=== PATIENT | male | born 1980 | race Two or more races ===

== ENCOUNTER 2017-03-09 21:41 | Inpatient (IN) | payer BC ==
[2017-03-09 22:03] VITALS: BMI 28.7
[2017-03-09] MEDS ORDERED: ONDANSETRON *ODT* 4 MG TABLET SL ONE (22:14)
[2017-03-09] MEDS ORDERED: HYDROmorphone HCL CARPU-JECT 2 MG/1 ML DISP.SYRIN ONE (22:14)
[2017-03-09] MEDS ORDERED: HYDROmorphone HCL CARPU-JECT 2 MG/1 ML DISP.SYRIN IM ONE (22:14)
--- NOTE | 2017-03-09 22:18 | PDOC ---
History of Present Illness <Francisco Harmon - Last Filed: 03/10/17 02:56> - General History Source: Patient Exam Limitations: No Limitations - History of Present Illness Initial Comments: 03/09/17 22:25 The patient is a 37 year old male with significant past medical history of kidney stones who presents to the ED for sudden onset of increasing right flank pain and right groin pain 2 hours prior to arrival. Patient reports he was in his usual state of health when he was sitting down and suddenly felt a sharp pain in his right flank and right groin region. He reports associated nausea and vomiting, but no diarrhea. States having a year history of intermittent right groin pain that normally goes away on its own. However, his pain is now much more intense. States his pain is consistent with his previous kidney stones in the past. Denies dysuria, hematuria, urgency, and frequency. The patient denies fever, chills, cough, SOB, chest pain, and palpitations. Allergies: NKDA Social History: No alcohol, tobacco, or drug use reported. Past Surgical History: None reported PCP: None reported <Franci Flores - Last Filed: 03/10/17 05:00> - General Chief Complaint: Pain Stated Complaint: ABD PAIN Time Seen by Provider: 03/09/17 22:07 Past History - Past Medical History Kidney Stones: Yes - Psycho/Social/Smoking Cessation Hx Suicidal Ideation: No Smoking History: Never smoked <Francisco Harmon - Last Filed: 03/10/17 02:56> <Franci Flores - Last Filed: 03/10/17 05:00> - Past Medical History Allergies/Adverse Reactions: Allergies Allergy/AdvReac Type Severity Reaction Status Date / Time No Known Allergies Allergy Verified 03/09/17 22:03 Home Medications: Ambulatory Orders Ondansetron [Zofran *Odt*] 8 mg SL TID #30 od.tablet 03/10/17 Oxycodone HCl/Acetaminophen [Percocet 5-325 mg Tablet] 1 - 2 tab PO Q6H #20 tab MDD 6 03/10/17 Review of Systems - Review of Systems Able to Perform ROS?: Yes Comments:: 03/09/17 22:25 CONSTITUTIONAL: Absent: fever, no chills, no fatigue EYES: Absent: visual changes ENT: Absent: ear pain, no sore throat CARDIOVASCULAR: Absent: chest pain, no palpitations RESPIRATORY: Absent: cough, no SOB GI: +right groin pain, nausea, vomiting Absent: no constipation, no diarrhea GENITOURINARY: +right flank pain Absent: dysuria, no frequency, no hematuria MUSCULOSKELETAL: Absent: back pain, no arthralgia, no myalgia SKIN: Absent: rash NEURO: Absent: headache <MarkFranci - Last Filed: 03/10/17 05:00> *Physical Exam - Vital Signs Last Vital Signs Temp Pulse Resp BP Pulse Ox 97.9 F 70 18 140/85 99 03/09/17 22:01 03/09/17 22:01 03/09/17 22:01 03/09/17 22:01 03/09/17 22:01 <Francisco Harmon - Last Filed: 03/10/17 02:56> - Vital Signs Last Vital Signs Temp Pulse Resp BP Pulse Ox 97.9 F 70 18 140/85 99 03/09/17 22:01 03/09/17 22:01 03/09/17 22:01 03/09/17 22:01 03/09/17 22:01 - Physical Exam Comments: 03/09/17 22:26 GENERAL: Well-appearing, well-nourished. No apparent distress. HEENT: Normocephalic, atraumatic. PERRL, EOM intact. CARDIOVASCULAR: Normal S1, S2. Regular rate and rhythm. PULMONARY: Clear to auscultation bilaterally. ABDOMINAL: Soft. Tender in the right lower quadrant region, but not right upper quadrant. Unable to sit still secondary to the pain. Non-distended. No rebound or guarding. No murphys sign. No organomegaly. Normoactive bowel sounds. MUSCULOSKELETAL No CVA tenderness. EXTREMITIES: Normal ROM in all four extremities. No gross deformities. SKIN: Warm, dry. No rash NEUROLOGICAL: No focal neurological deficits. <MarkFranci - Last Filed: 03/10/17 05:00> Heart Score/ECG Review - ECG Impressions Comment:: 03/10/17 05:00 NSR @68bpm Normal ECG <Franci Flores - Last Filed: 03/10/17 05:00> ED Treatment Course - LABORATORY CBC & Chemistry Diagram: 03/09/17 22:30 03/09/17 22:30 - RADIOLOGY Radiology Studies Ordered: Category Date Time Status ABDOMEN & PELVIS CT W/O CONTR [CT] Stat CT Scan 03/09/17 22:15 Ordered <Francisco Harmon - Last Filed: 03/10/17 02:56> - LABORATORY CBC & Chemistry Diagram: 03/09/17 22:30 03/09/17 22:30 - RADIOLOGY Radiograph Interpretation: 03/10/17 00:13 CT/ABDOMEN PELVIS CT W/O CONTR Radiologist's Impression: An approximately 1.1 x 0.4 cm calculus is seen within the right renal pelvis adjacent to the ureteropelvic junction with resultant moderate hydronephrosis. There is mild right perirenal soft tissue stranding secondary to acute obstruction. 0.4 cm upper pole and 0.1 cm lower pole nonobstructing right renal calculi are visualized. No other definite urinary tract calculus is noted. Bilateral inguinal hernias are seen containing fat only. The liver, spleen, pancreas, gallbladder, adrenal glands and left kidney demonstrate no discrete noncontrast pathology. There is no aortic aneurysm. No free intraperitoneal fluid is noted. There is no obvious lymphadenopathy. The appendix appears unremarkable. IMPRESSION: A 1.1 x 0.4 cm calculus is identified within the right renal pelvis adjacent to the ureteropelvic junction with resultant moderate hydronephrosis. Small nonobstructing right renal calculi. Bilateral inguinal hernias containing fat only. <Franci Flores - Last Filed: 03/10/17 05:00> Medical Decision Making - Medical Decision Making 03/10/17 01:[address] Lavon Avila (via answering service) and patient's case was discussed <Franci Flores - Last Filed: 03/10/17 05:00> *DC/Admit/Observation/Transfer - Discharge Dispostion Admit: Yes - Attestations Physician Attestion: 03/09/17 22:17 I, Dr. Francisco Harmon, attest that this document has been prepared under my direction and personally reviewed by me in its entirety. I further attest, that it accurately reflects all work, treatment, procedures and medical decision -making performed by me. <Francisco Harmon - Last Filed: 03/10/17 02:56> - Attestations Scribe Attestion: 03/09/17 22:26 Documentation prepared by Franci Flores, acting as medical language specialist for Francisco Harmon MD/. <Franci Flores - Last Filed: 03/10/17 05:00> Diagnosis at time of Disposition: Kidney stone on right side, Hydroureter on right - Discharge Dispostion Condition at time of disposition: Improved - Prescriptions Prescriptions: Oxycodone HCl/Acetaminophen [Percocet 5-325 mg Tablet] 1 - 2 tab PO Q6H #20 tab MDD 6 Ondansetron [Zofran *Odt*] 8 mg SL TID #30 od.tablet
[2017-03-09 22:41] LABS: BASOPHIL 0.5 % (0-2.0); EOSINOPHIL 0.4 % (0-4.5); MCH 27.4 pg (25.7-33.7); MCHC 33.7 g/dl (32.0-35.9); MEAN CELL VOLUME 81.5 fl (80-96); MEAN PLT VOLUME 7.9 fl (7.5-11.1); NEUTROPHILS 79.3 % (42.8-82.8); PLATELET COUNT 239 K/MM3 (134-434); RDW 13.3 % (11.9-15.9); WHITE BLOOD COUNT 14.2 K/mm3 (4.0-10.0)
[2017-03-09 23:02] LABS: ALBUMIN 4.1 g/dl (3.4-5.0); ALK PHOS 60 U/L (45-117); ANION GAP 5 (8-16); BILIRUBIN,TOTAL 0.4 mg/dL (0.2-1.0); CALCIUM 8.8 mg/dL (8.5-10.1); CO2 29 mmol/L (21-32); GLUCOSE,RANDOM 103 mg/dL (74-106); SGOT/AST 17 U/L (15-37); SGPT/ALT 25 U/L (12-78); TOT PROT 6.9 g/dl (6.4-8.2)
[2017-03-09] MEDS ORDERED: SODIUM CHLORIDE 0.9% 1000 ML INFUS.BAG IV ONE (23:12)
[2017-03-09 23:15] LABS: INR 1.07 (0.82-1.09); PROTHROMBIN TIME (PATIENT) 11.8 SEC (9.98-11.88)
[2017-03-10] MEDS ORDERED: SODIUM CHLORIDE 1,000 ML IV STA (01:07)
--- NOTE | 2017-03-10 01:35 | PN ---
Teaching Attending Note Name of Resident: Liya Liu ATTENDING PHYSICIAN STATEMENT I saw and evaluated the patient. I reviewed the resident's note and discussed the case with the resident. I agree with the resident's findings and plan as documented. SUBJECTIVE: 37 yo with pmhx of nephrolithiasis who presents with abdominal pain that started today, several hours prior to arrival. Abdominal Pain is more on his right side of his abdomen and radiating to his groin. Also notes associated nausea and vomiting. OBJECTIVE: Physical: VS: Vital Signs Period Temp Pulse Resp BP Sys/Russo Pulse Ox Last 24 Hr 97.9 F 70 18 140/85 99 GEN: NAD, Resting in bed HEENT: NCAT, PERRL CARD: RRR S1, S2 RESP: CTAB ABD: BSX4, Tenderness to palpation in RLQ EXT: - C/C/E CBCD WBC 14.2 K/mm3 (4.0-10.0) H 03/09/17 22:30 RBC 4.74 M/mm3 (4.00-5.60) 03/09/17 22:30 Hgb 13.0 GM/dL (11.7-16.9) 03/09/17 22:30 Hct 38.6 % (35.4-49) 03/09/17 22:30 MCV 81.5 fl (80-96) 03/09/17 22:30 MCHC 33.7 g/dl (32.0-35.9) 03/09/17 22:30 RDW 13.3 % (11.9-15.9) 03/09/17 22:30 Plt Count 239 K/MM3 (134-434) 03/09/17 22:30 MPV 7.9 fl (7.5-11.1) 03/09/17 22:30 CMP Sodium 137 mmol/L (136-145) 03/09/17 22:30 Potassium 3.9 mmol/L (3.5-5.1) 03/09/17 22:30 Chloride 103 mmol/L (98-107) 03/09/17 22:30 Carbon Dioxide 29 mmol/L (21-32) 03/09/17 22:30 Anion Gap 5 (8-16) L 03/09/17 22:30 BUN 17 mg/dL (7-18) 03/09/17 22:30 Creatinine 1.0 mg/dL (0.7-1.3) 03/09/17 22:30 Creat Clearance w eGFR > 60 (>60) 03/09/17 22:30 Random Glucose 103 mg/dL (74-106) 03/09/17 22:30 Calcium 8.8 mg/dL (8.5-10.1) 03/09/17 22:30 Total Bilirubin 0.4 mg/dL (0.2-1.0) 03/09/17 22:30 AST 17 U/L (15-37) 03/09/17 22:30 ALT 25 U/L (12-78) 03/09/17 22:30 Alkaline Phosphatase 60 U/L (45-117) 03/09/17: Total Protein 6.9 g/dl (6.4-8.2) 03/09/17 22: Albumin 4.1 g/dl (3.4-5.0) 03/09/17 22:30 CT ABDOMEN/PELVIS: CT/ABDOMEN PELVIS CT W/O CONTR Radiologist's Impression: An approximately 1.1 x 0.4 cm calculus is seen within the right renal pelvis adjacent to the ureteropelvic junction with resultant moderate hydronephrosis. There is mild right perirenal soft tissue stranding secondary to acute obstruction. 0.4 cm upper pole and 0.1 cm lower pole nonobstructing right renal calculi are visualized. No other definite urinary tract calculus is noted. Bilateral inguinal hernias are seen containing fat only. The liver, spleen, pancreas, gallbladder, adrenal glands and left kidney demonstrate no discrete noncontrast pathology. There is no aortic aneurysm. No free intraperitoneal fluid is noted. There is no obvious lymphadenopathy. The appendix appears unremarkable. IMPRESSION: A 1.1 x 0.4 cm calculus is identified within the right renal pelvis adjacent to the ureteropelvic junction with resultant moderate hydronephrosis. Small nonobstructing right renal calculi. Bilateral inguinal hernias containing fat only. ASSESSMENT AND PLAN: 37 With hx of Nephrolithiasis who presents with abdominal pain found to have nephrolithiasis and R. moderate hydronephrosis 1.) Nephrolithiasis with mod. R hydronephrosis - Flomax - Pain control - IVF - Urology consult - NPO - Type and screen/Coags - Urine strainer for smaller stones 2.) Dvt PPx - Low risk- SCD Place in med- Sx
--- NOTE | 2017-03-10 01:38 | HP ---
HISTORY OF PRESENT ILLNESS: Patient is a 37 year old male with a PMHx of nephrolithiasis who presents today with a sudden onset of right mid-abdominal pain and flank pain radiating to the right groin that started several hours prior to hospital arrival described as sharp in nature. Pain is associated with nausea, vomiting, subjective fevers, urgency. Patient otherwise denies chest pain, palpitations, shortness of breath , headaches. PHYSICAL EXAMINATION Vital Signs - 24 hr 03/09/17 22:01 Temperature 97.9 F Pulse Rate 70 Respiratory 18 Rate Blood Pressure 140/85 O2 Sat by Pulse 99 Oximetry (%) GENERAL: Awake, alert, and fully oriented, in no acute distress. EYES: Sclera anicteric, conjunctiva clear. No lid lag. EARS, NOSE, THROAT: Ears normal, nares patent, oropharynx clear without exudates. Moist mucous membranes. LUNGS: Breath sounds equal, clear to auscultation bilaterally. No wheezes, and no crackles. No accessory muscle use. HEART: Regular rate and rhythm, normal S1 and S2 without murmur, rub or gallop. ABDOMEN: Soft, tenderness upon palpation of right mid and lower abdomen MUSCULOSKELETAL: (+) Right CVA tenderness. LOWER EXTREMITIES: No peripheral edema. Laboratory Results - last 24 hr 03/09/17 03/09/17 03/09/17 22:30 22:30 22:30 WBC 14.2 H RBC 4.74 Hgb 13.0 Hct 38.6 MCV 81.5 MCH 27.4 MCHC 33.7 RDW 13.3 Plt Count 239 MPV 7.9 Neutrophils % 79.3 Lymphocytes % 15.4 Monocytes % 4.4 Eosinophils % 0.4 Basophils % 0.5 INR 1.07 Sodium 137 Potassium 3.9 Chloride 103 Carbon Dioxide 29 Anion Gap 5 L BUN 17 Creatinine 1.0 Creat Clearance w eGFR > 60 Random Glucose 103 Calcium 8.8 Total Bilirubin 0.4 AST 17 ALT 25 Alkaline Phosphatase 60 Total Protein 6.[address] Abdo/Pelvis (03/09/17): An approximately 1.1 x 0.4 cm calculus is seen within the right renal pelvis adjacent to the ureteropelvic junction with resultant moderate hydronephrosis. There is mild right perirenal soft tissue stranding secondary to acute obstruction. 0.4 cm upper pole and 0.1 cm lower pole nonobstructing right renal calculi are visualized. No other definite urinary tract calculus is noted. Bilateral inguinal hernias are seen containing fat only. The liver, spleen, pancreas, gallbladder, adrenal glands and left kidney demonstrate no discrete noncontrast pathology. There is no aortic aneurysm. No free intraperitoneal fluid is noted. There is no obvious lymphadenopathy. The appendix appears unremarkable. IMPRESSION: A 1.1 x 0.4 cm calculus is identified within the right renal pelvis adjacent to the ureteropelvic junction with resultant moderate hydronephrosis. Small nonobstructing right renal calculi. Bilateral inguinal hernias containing fat only. ASSESSMENT/PLAN: Patient is a 37 year old male with a PMHx of nephrolithiasis who presented with RLQ abdominal pain and right flank pain radiating to the groin. CT revealed 1cm right kidney stone with moderate hydronephrosis. Patient admitted for further monitoring and management. Nephrolithiasis with Moderate Hydronephrosis -IV NS @125mls/hr -Morphine for pain control -Flomax with urine strainer -Type and screen with coags -NPO -Urology consult placed Prophylaxis -SCD's for DVT. Low risk Disposition -Full code -Admit to med/surg Case discussed with medical team and attending. Full H&P to follow. Visit type - Emergency Visit Emergency Visit: Yes ED Registration Date: 03/10/17 Care time: The patient presented to the Emergency Department on the above date and was hospitalized for further evaluation of their emergent condition. - New Patient This patient is new to me today: Yes Date on this admission: 03/10/17 - Critical Care Critical Care patient: No
[2017-03-10 02:11] LABS: URINE APPEARANCE CLEAR; URINE BILIRUBIN NEGATIVE (NEGATIVE); URINE COLOR STRAW; URINE GLUCOSE (UA) NEGATIVE (NEGATIVE); URINE KETONE NEGATIVE (NEGATIVE); URINE LEUK ESTERASE NEGATIVE (NEGATIVE); URINE NITRITE NEGATIVE (NEGATIVE); URINE PROTEIN NEGATIVE (NEGATIVE); URINE UROBILINOGEN NEGATIVE E.U./dl (0.2-1.0)
--- NOTE | 2017-03-10 02:12 | HP ---
CHIEF COMPLAINT: right flank pain radiating to Right groin. PCP: Dr. Leahy ([facility]) HISTORY OF PRESENT ILLNESS: 37 year old healthy Mediterranean male with PMH of kidney stone who presented to the ED due to sever right flank pain radiation to his groin. the pain started around 6.30 pm, tearing, 10/10 in severity. the pain is associated with fever, nausea and vomiting of yellow liquids X 2.Patient had similar pain 10 years ago due to kidney stone and its resolved spontaneously. he has some colicky abdominal pain last year once and awhile but it is usually resolves on its own. Patient denies any chills,sob, chest pain,cough, D/C. He reports having burning sensation, retention and urgency but denies any hematuria. he was treated for UTI 6 months ago.he denies any recent travel or sick contact. ER course was notable for: (1) IV fluids NS 1000 IV ASDIR Bolus (2) Pain med IV morphine 2 mg PO Q4H PRN and antiemetics Ondansteron 8 mg PO once. (3) CT/ABDOMEN PELVIS CT W/O CONTR . Recent Travel:NO PAST MEDICAL HISTORY: Kidney stone 10 years ago. PAST SURGICAL HISTORY:None Social History: Smoking:none Alcohol:None Drugs: None Family History: sister has kidney stone Allergies No Known Allergies Allergy (Verified 03/09/17 22:03) HOME MEDICATIONS: Home Medications Medication Instructions Recorded Ondansetron [Zofran *Odt*] 8 mg SL TID #30 od.tablet 03/10/17 Oxycodone HCl/Acetaminophen 1 - 2 tab PO Q6H #20 tab MDD 6 03/10/17 [Percocet 5-325 mg Tablet] REVIEW OF SYSTEMS CONSTITUTIONAL: Absent: fever, chills, diaphoresis, generalized weakness, malaise, loss of appetite, weight change HEENT: Absent: rhinorrhea, nasal congestion, throat pain, throat swelling, difficulty swallowing, mouth swelling, ear pain, eye pain, visual changes CARDIOVASCULAR: Absent: chest pain, syncope, palpitations, irregular heart rate, lightheadedness , peripheral edema RESPIRATORY: Absent: cough, shortness of breath, dyspnea with exertion, orthopnea, wheezing, stridor, hemoptysis GASTROINTESTINAL: Absent:+ abdominal pain LLQ , NO abdominal distension,+ nausea, vomiting, diarrhea, constipation, melena, hematochezia GENITOURINARY: Absent:+ dysuria, urgency, hesitancy, NO hematuria, +flank pain, +genital pain MUSCULOSKELETAL: Absent: myalgia, arthralgia, joint swelling, back pain, neck pain SKIN: Absent: rash, itching, pallor HEMATOLOGIC/IMMUNOLOGIC: Absent: easy bleeding, easy bruising, lymphadenopathy, frequent infections ENDOCRINE: Absent: unexplained weight gain, unexplained weight loss, heat intolerance, cold intolerance NEUROLOGIC: Absent:+ headache, focal weakness or paresthesias, dizziness, seizure, mental status changes, bladder or bowel incontinence PSYCHIATRIC: Absent: anxiety, depression, suicidal or homicidal ideation, hallucinations. PHYSICAL EXAMINATION Vital Signs - 24 hr 03/09/17 22:01 Temperature 97.9 F Pulse Rate 70 Respiratory 18 Rate Blood Pressure 140/85 O2 Sat by Pulse 99 Oximetry (%) GENERAL: Awake, alert, and fully oriented, in no acute distress. HEAD: Normal with no signs of trauma. EYES: Pupils equal, round and reactive to light, extraocular movements intact, sclera anicteric, conjunctiva clear. No lid lag. EARS, NOSE, THROAT: Ears normal, nares patent, oropharynx clear without exudates. Moist mucous membranes. NECK: Normal range of motion, supple without lymphadenopathy, JVD, or masses. LUNGS: Breath sounds equal, clear to auscultation bilaterally. No wheezes, and no crackles. No accessory muscle use. HEART: Regular rate and rhythm, normal S1 and S2 without murmur, rub or gallop. ABDOMEN: Soft, tender LLQ , not distended, normoactive bowel sounds, no guarding , no rebound, no masses. No hepatomegaly or splenomegaly. +CVA tenderness MUSCULOSKELETAL: Normal range of motion at all joints. No bony deformities or tenderness. +CVA tenderness. UPPER EXTREMITIES: 2+ pulses, warm, well-perfused. No cyanosis. No clubbing. No peripheral edema. LOWER EXTREMITIES: 2+ pulses, warm, well-perfused. No calf tenderness. No peripheral edema. NEUROLOGICAL: Cranial nerves II-XII intact. Normal speech. PSYCHIATRIC: Cooperative. Good eye contact. Appropriate mood and affect. SKIN: Warm, dry, normal turgor, no rashes or lesions noted, normal capillary refill. Laboratory Results - last 24 hr 03/09/17 03/09/17 03/09/17 22:30 22:30 22:30 WBC 14.2 H RBC 4.74 Hgb 13.0 Hct 38.6 MCV 81.5 MCH 27.4 MCHC 33.7 RDW 13.3 Plt Count 239 MPV 7.9 Neutrophils % 79.3 Lymphocytes % 15.4 Monocytes % 4.4 Eosinophils % 0.4 Basophils % 0.5 INR 1.07 Sodium 137 Potassium 3.9 Chloride 103 Carbon Dioxide 29 Anion Gap 5 L BUN 17 Creatinine 1.0 Creat Clearance w eGFR > 60 Random Glucose 103 Calcium 8.8 Total Bilirubin 0.4 AST 17 ALT 25 Alkaline Phosphatase 60 Total Protein 6.[address]/ABDOMEN PELVIS CT W/O CONTR Radiologist's Impression: An approximately 1.1 x 0.4 cm calculus is seen within the right renal pelvis adjacent to the ureteropelvic junction with resultant moderate hydronephrosis. There is mild right perirenal soft tissue stranding secondary to acute obstruction. 0.4 cm upper pole and 0.1 cm lower pole nonobstructing right renal calculi are visualized. No other definite urinary tract calculus is noted. Bilateral inguinal hernias are seen containing fat only . The liver, spleen, pancreas, gallbladder, adrenal glands and left kidney demonstrate no discrete noncontrast pathology. There is no aortic aneurysm. No free intraperitoneal fluid is noted. There is no obvious lymphadenopathy. The appendix appears unremarkable. IMPRESSION: A 1.1 x 0.4 cm calculus is identified within the right renal pelvis adjacent to the ureteropelvic junction with resultant moderate hydronephrosis. Small nonobstructing right renal calculi. Bilateral inguinal hernias containing fat only. ASSESSMENT/PLAN: 37 year old healthy Mediterranean male with PMH of kidney stone who presented to the ED due to sever right flank pain radiation to his groin. patient was admitted into med-surg for nephrolethiasis. 1- Right kidney stone (nephrolithiasis) Acute on chronic: * CT abdomen/pelvis shows 1.1x0.4 cm calculus in the right renal pelvis adjacent.with right moderate hydronephrosis. * Lyckocytosis 14.000 * NPO * IV fluids 0.9 NS 125 ml/Hour * IV morphine 2 mg PRN * 24 hour Urine strain * Type and screen * APTT, PT * CBC , BMP * UA : showed +2 urine blood * Urology consultation * * 2- Nausea Most likely 2/2 nephrolethiasis * Zophran 8 mg PRN * * 3- F/E/D * 0.9 NS 125 * Electrolytes WNL * NPO * * * 4- Prophylaxis DVT : Low risk * SCDs * * 5- Dispo: * Admitted for med-surg for further eval. * patient is full code. Visit type - Emergency Visit Emergency Visit: Yes ED Registration Date: 03/10/17 Care time: The patient presented to the Emergency Department on the above date and was hospitalized for further evaluation of their emergent condition. - New Patient This patient is new to me today: Yes Date on this admission: 03/10/17 - Critical Care Critical Care patient: No
[2017-03-10 02:15] LABS: URINE BLOOD 2+ (NEGATIVE)
[2017-03-10 02:22] LABS: URINE MUCUS RARE; URINE RBC 69 /hpf (0-3)
[2017-03-10] MEDS ORDERED: morphine CARPU-JECT 2 MG/1 ML DISP.SYRIN IVPUSH PRN (02:32)
[2017-03-10] MEDS ORDERED: TAMSULOSIN HCL 0.4 MG CAP.ER.24H (FP) PO ONE (02:51)
[2017-03-10] MEDS ORDERED: TAMSULOSIN HCL 0.4 MG CAP.ER.24H (FP) ONE (03:33)
[2017-03-10 05:44] LABS: MCH 28.1 pg (25.7-33.7); MCHC 34.3 g/dl (32.0-35.9); MEAN PLT VOLUME 7.6 fl (7.5-11.1); PLATELET COUNT 208 K/MM3 (134-434); RDW 13.4 % (11.9-15.9); WHITE BLOOD COUNT 9.9 K/mm3 (4.0-10.0)
[2017-03-10 05:58] LABS: INR 1.1 (0.82-1.09); PROTHROMBIN TIME (PATIENT) 12.1 SEC (9.98-11.88)
[2017-03-10 06:00] LABS: ACTIVATED PTT 30.7 SECONDS (26.9-34.4)
[2017-03-10 06:08] LABS: ANION GAP 8 (8-16); CALCIUM 7.9 mg/dL (8.5-10.1); CO2 27 mmol/L (21-32); CREATININE 0.8 mg/dL (0.7-1.3); GLUCOSE,RANDOM 93 mg/dL (74-106)
[2017-03-10] MEDS: SODIUM CHLORIDE 1,000 ML IV SCH ×2 (07:30→20:49)
--- NOTE | 2017-03-10 07:56 | CON.GU ---
Consult Consult Specialty:: Urology Referred by:: Eva Reason for Consultation:: R ureteral calculus - History of Present Illness Chief Complaint: R flank and abd pain History of Present Illness: 37 yo m w hx nephrolithiasis pres to ER c/o sudden onset of severe, sharp R flank and R sided abd pain radiating to groin, found to have 1 cm R UPJ calculus w mod R hydronephrosis and leukocytosis and cons req. - History Source History Provided By: Patient, Medical Record Limitations to Obtaining History: No Limitations - Past Medical History Renal/: Yes: Renal Calculi - Smoking History Smoking history: Never smoked Home Medications - Allergies Allergies/Adverse Reactions: Allergies Allergy/AdvReac Type Severity Reaction Status Date / Time No Known Allergies Allergy Verified 03/09/17 22:03 - Home Medications Home Medications: Ambulatory Orders NK [No Known Home Medication] 03/10/17 Ondansetron [Zofran *Odt*] 8 mg SL TID #30 od.tablet 03/10/17 Oxycodone HCl/Acetaminophen [Percocet 5-325 mg Tablet] 1 - 2 tab PO Q6H #20 tab MDD 6 03/10/17 Review of Systems - Review of Systems Gastrointestinal: reports: Abdominal Pain Genitourinary: reports: Flank Pain, Urgency Physical Exam- Vital Signs: Vital Signs Temperature 97.9 F 03/09/17 22:01 Pulse Rate 70 03/09/17 22:01 Respiratory Rate 18 03/09/17 22:01 Blood Pressure 140/85 03/09/17 22:01 O2 Sat by Pulse Oximetry (%) 99 03/09/17 22:38 Constitutional: Yes: Well Nourished, No Distress, Calm Gastrointestinal: Yes: Normal Bowel Sounds, Soft, Tenderness (RUQ) Renal/: Yes: CVA Tenderness - Right Labs: CBC, BMP 03/10/17 05:30 03/10/17 05:30 Imaging - Results Cat Scan: Report Reviewed, Image Reviewed Assessment/Plan Imp: R UPJ calculus, moderate R hydronephrosis, leukocytosis Rec: ivfs, iv abxs, cysto R ureteroscopic laser lithotripsy and R JJ stent insertion 03/11
--- NOTE | 2017-03-10 12:09 | PN ---
Teaching Attending Note Name of Resident: Balaji Bustillo ATTENDING PHYSICIAN STATEMENT I saw and evaluated the patient. I reviewed the resident's note and discussed the case with the resident. I agree with the resident's findings and plan as documented. SUBJECTIVE: RLQ pain subsided, no nausea OBJECTIVE: Vital Signs Temperature 98.1 F 03/10/17 07:30 Pulse Rate 66 03/10/17 10:53 Respiratory Rate 18 03/10/17 10:53 Blood Pressure 115/65 03/10/17 10:53 O2 Sat by Pulse Oximetry (%) 100 03/10/17 10:53 Constitutional: Yes: Well Nourished, No Distress, Calm Gastrointestinal: Yes: Normal Bowel Sounds, Soft, Tenderness (RUQ) Renal/: Yes: CVA Tenderness - Right CBC, BMP 03/10/17 05:30 03/10/17 05:30 CT abdomen -Right UPJ stone, 1 cm , moderate hydro ASSESSMENT AND PLAN: 1. Acute obstructive uropathy secondary to nephrolithiasis- no evidence of superimposed infection /UTI. - Pain control - IVF -NPO after midnght - cystoscopy in am
[2017-03-10] MEDS ORDERED: cefTRIAXone 2 GM/100 ML BAG (PRE-DOCKED) IVPB ONE (12:30)
[2017-03-10] MEDS ORDERED: CEFTRIAXONE 100 ML IVPB ONE (12:49)
--- NOTE | 2017-03-10 13:29 | PN ---
Physical Exam: SUBJECTIVE: Patient seen and examined Pain has significantly improved from overnight. States he has urinated his usual amount this morning. Denies any dysuria, hematuria, urinary frequency/ urgency. OBJECTIVE: Vital Signs Period Temp Pulse Resp BP Sys/Russo Pulse Ox Last 24 Hr 98.1 F 65-66 18 108-115/65-74 100-100 GENERAL: The patient is awake, alert, and fully oriented, in no acute distress. HEAD: Normal with no signs of trauma. EYES: extraocular movements intact, sclera anicteric NECK: Trachea midline, full range of motion LUNGS: Breath sounds equal, clear to auscultation bilaterally, no wheezes, no crackles, no accessory muscle use. HEART: Regular rate and rhythm, S1, S2 without murmur, rub or gallop. ABDOMEN: Soft, mild tenderness in RLQ, nondistended, normoactive bowel sounds, no guarding, no rebound, no hepatosplenomegaly, no masses. Mild right CVA tenderness EXTREMITIES: 2+ pulses, warm, well-perfused, no edema. NEUROLOGICAL:Normal speech, gait not observed. PSYCH: Normal mood, normal affect. SKIN: Warm, dry, normal turgor, no rashes or lesions noted Laboratory Results - last 24 hr 03/10/17 03/10/17 03/10/17 05:30 05:30 05:30 WBC 9.9 D RBC 4.47 Hgb 12.6 Hct 36.7 MCV 82.0 MCH 28.1 MCHC 34.3 RDW 13.4 Plt Count 208 MPV 7.6 INR 1.10 PTT (Actin FS) 30.7 Sodium 139 Potassium 4.3 Chloride 104 Carbon Dioxide 27 Anion Gap 8 BUN 14 Creatinine 0.8 Random Glucose 93 Calcium 7.9 L Blood Type Antibody Screen 03/10/17 05:30 WBC RBC Hgb Hct MCV MCH MCHC RDW Plt Count MPV INR PTT (Actin FS) Sodium Potassium Chloride Carbon Dioxide Anion Gap BUN Creatinine Random Glucose Calcium Blood Type O POSITIVE Antibody Screen Negative Active Medications Generic Name Dose Route Start Last Admin Trade Name Freq PRN Reason Stop Dose Admin Sodium Chloride 1,000 mls @ 125 mls/hr 03/10/17 02:45 03/10/17 07:30 Normal Saline - IV 125 mls/hr ASDIR AWAIS Administration Morphine Sulfate 2 mg 03/10/17 02:32 Morphine Injection - IVPUSH Q4H PRN PAIN Imaging- CT abdomen shows a 1.1 x 0.4 cm stone in the right renal pelvis adjacent to the UPJ with moderate hydronephrosis. ASSESSMENT/PLAN: 37 year old male with a remote PMH of nephrolithiasis presented with R flank pain radiating to his groin admitted for right nephrolithiasis. 1. Acute nephrolithiasis -CT shows 1.1 x 0.4 cm stone in right renal pelvis adjacent to the UPJ -Urology plans to do lithotripsy with possible stent placement tomorrow. -Pain control with 2mg morphine IVP Q4H PRN -IVF 125 cc/hr NS -NPO at midnight 2. DVT ppx -SCDs -Encourage Ambulation Visit type - Emergency Visit Emergency Visit: Yes ED Registration Date: 03/10/17 Care time: The patient presented to the Emergency Department on the above date and was hospitalized for further evaluation of their emergent condition. - New Patient This patient is new to me today: Yes Date on this admission: 03/10/17 - Critical Care Critical Care patient: No
--- NOTE | 2017-03-10 16:17 | EKG ---
Test Reason : Blood Pressure : / mmHG Vent. Rate : 068 BPM Atrial Rate : 068 BPM P-R Int : 156 ms QRS Dur : 078 ms QT Int : 378 ms P-R-T Axes : 071 059 040 degrees QTc Int : 401 ms NORMAL SINUS RHYTHM NORMAL ECG NO PREVIOUS ECGS AVAILABLE Confirmed by AILYN BARAHONA MD ([id number]) on 03/10/2017 4:16:48 PM Referred By: Confirmed By:AILYN BARAHONA MD
[2017-03-11] MEDS: SODIUM CHLORIDE 1,000 ML IV SCH ×2 (04:29→06:55)
--- NOTE | 2017-03-11 08:06 | PN ---
Teaching Attending Note Name of Resident: Ronald Holder ATTENDING PHYSICIAN STATEMENT I saw and evaluated the patient. I reviewed the resident's note and discussed the case with the resident. I agree with the resident's findings and plan as documented. SUBJECTIVE:no pain , no nausea straining urine but no stones noticed OBJECTIVE: Vital Signs Temperature 97.6 F 03/11/17 06:00 Pulse Rate 70 03/11/17 06:00 Respiratory Rate 20 03/11/17 06:00 Blood Pressure 116/73 03/11/17 06:00 O2 Sat by Pulse Oximetry (%) 99 03/10/17 20:07 GENERAL: The patient is awake, alert, and fully oriented, in no acute distress. HEAD: Normal with no signs of trauma. EYES: extraocular movements intact, sclera anicteric NECK: Trachea midline, full range of motion LUNGS: Breath sounds equal, clear to auscultation bilaterally, no wheezes, no crackles, no accessory muscle use. HEART: Regular rate and rhythm, S1, S2 without murmur, rub or gallop. ABDOMEN: Soft, mild tenderness in RLQ, nondistended, normoactive bowel sounds, no guarding, no rebound, no hepatosplenomegaly, no masses. Mild right CVA tenderness EXTREMITIES: 2+ pulses, warm, well-perfused, no edema. NEUROLOGICAL:Normal speech, gait not observed. PSYCH: Normal mood, normal affect. SKIN: Warm, dry, normal turgor, no rashes or lesions noted Abnormal Lab Results 03/10/17 02:00 Urine Blood 2+ H ASSESSMENT AND PLAN: 1. Acute obstructive uropathy secondary to nephrolithiasis- no evidence of superimposed infection /UTI. for cystoscopy today may D/C after if stable
[2017-03-11 08:12] LABS: ANION GAP 7 (8-16); CALCIUM 8.7 mg/dL (8.5-10.1); CO2 30 mmol/L (21-32); CREATININE 0.8 mg/dL (0.7-1.3); GLUCOSE,RANDOM 92 mg/dL (74-106)
[2017-03-11 09:16] LABS: BASOPHIL 0.5 % (0-2.0); EOSINOPHIL 1.2 % (0-4.5); MCH 27.7 pg (25.7-33.7); MCHC 33.4 g/dl (32.0-35.9); MEAN CELL VOLUME 82.9 fl (80-96); MEAN PLT VOLUME 8.1 fl (7.5-11.1); NEUTROPHILS 56.2 % (42.8-82.8); PLATELET COUNT 200 K/MM3 (134-434); RDW 13.7 % (11.9-15.9); WHITE BLOOD COUNT 6.5 K/mm3 (4.0-10.0)
--- NOTE | 2017-03-11 11:49 | OP ---
Operative Note - Note: Operative Date: 03/11/17 Pre-Operative Diagnosis: R UPJ and renal calculi, R hydronephrosis Operation: R ureteroscopic laser lithotripsy, R JJ stent insertion Findings: R UPJ calculus, R hydronephrosis Post-Operative Diagnosis: Same as Pre-op Surgeon: Lavon Avila Anesthesiologist/USER ACCEPTANCE TESTER: Tari Azar Anesthesia: General Estimated Blood Loss (mls): 0 Drains & Tubes with Location: 6 fr 26 cm R JJ stent Operative Report Dictated: Yes
[2017-03-11] MEDS ORDERED: OXYCODONE/APAP 5/325MG COMBO TABLET PO PRN (11:59)
[2017-03-11] MEDS ORDERED: ACETAMINOPHEN 325 MG TABLET (FP) PO PRN (12:15)
[2017-03-11] MEDS ORDERED: MIDAZOLAM HCL 2 MG/2 ML SINGLE DOSE VIAL ONE (12:19)
[2017-03-11] MEDS ORDERED: PROPOFOL 20 ML ONE (12:19)
[2017-03-11] MEDS ORDERED: LIDOCAINE HCL/PF 2% SDV 5ML VIAL ONE (12:19)
[2017-03-11] MEDS ORDERED: ceFAZolin SODIUM 1 GM VIAL IVPB ONE (12:30)
[2017-03-11] MEDS ORDERED: ceFAZolin SODIUM 1 GM VIAL ONE (12:40)
[2017-03-11] MEDS ORDERED: ONDANSETRON 4 MG/2 ML VIAL IVPUSH PRN (13:30)
[2017-03-11] MEDS ORDERED: LACTATED RINGERS SOLUTION 1,000 ML IV SCH (13:30)
[2017-03-11] MEDS ORDERED: morphine CARPU-JECT 2 MG/1 ML DISP.SYRIN IVPUSH PRN (13:38)
[2017-03-11] MEDS ORDERED: SODIUM CHLORIDE 1,000 ML IV SCH (13:38)
[2017-03-11] MEDS: oxyCODONE HCL 5 MG TABLET PO PRN ×2 (15:59→20:55)
--- NOTE | 2017-03-11 17:36 | DS ---
Physical Exam: SUBJECTIVE: Patient seen and examined No acute events overnight. Patient is not in any pain this morning. OBJECTIVE: Vital Signs Period Temp Pulse Resp BP Sys/Russo Pulse Ox Last 24 Hr 97.6 F-98.3 F 56-76 11-20 108-125/63-90 96-100 PHYSICAL EXAM GENERAL: The patient is awake, alert, and fully oriented, in no acute distress. HEAD: Normal with no signs of trauma. EYES: extraocular movements intact, sclera anicteric NECK: Trachea midline, full range of motion LUNGS: Breath sounds equal, clear to auscultation bilaterally, no wheezes, no crackles, no accessory muscle use. HEART: Regular rate and rhythm, S1, S2 without murmur, rub or gallop. ABDOMEN: Soft, mild tenderness in RLQ, nondistended, normoactive bowel sounds, no guarding, no rebound, no hepatosplenomegaly, no masses. Mild right CVA tenderness EXTREMITIES: 2+ pulses, warm, well-perfused, no edema. NEUROLOGICAL:Normal speech, gait not observed. PSYCH: Normal mood, normal affect. SKIN: Warm, dry, normal turgor, no rashes or lesions noted LABS Laboratory Results - last 24 hr Vital Signs - 8 hr 03/11/17 03/11/17 03/11/17 13:25 13:45 14:00 Temperature 97.9 F Pulse Rate 76 66 68 Respiratory 13 12 12 Rate Blood Pressure 118/68 125/78 118/81 O2 Sat by Pulse 97 96 96 Oximetry (%) 03/11/17 03/11/17 03/11/17 14:15 14:30 14:45 Temperature Pulse Rate 65 61 56 L Respiratory 12 11 L 12 Rate Blood Pressure 119/81 114/76 108/70 O2 Sat by Pulse 97 97 100 Oximetry (%) 03/11/17 03/11/17 03/11/17 15:00 15:15 15:30 Temperature 98.3 F 98.0 F Pulse Rate 63 64 64 Respiratory 14 14 18 Rate Blood Pressure 112/83 122/79 124/90 O2 Sat by Pulse 98 99 99 Oximetry (%) 03/11/17 18:39 Temperature 97.9 F Pulse Rate 66 Respiratory 18 Rate Blood Pressure 111/73 O2 Sat by Pulse Oximetry (%) Abnormal Lab Results 03/11/17 06:15 Anion Gap 7 L Imaging- Ct abd/pelvis- 1.1 by 0.4 cm calculus in right renal pelvis adjacent to the UPJ with moderate hydronephrosis. HOSPITAL COURSE: Date of Admission:03/10/17 Date of Discharge: 03/11/17 37 year old healthy Mediterranean male with PMH of kidney stone who presented to the ED due to severe right flank pain radiation to his groin admitted for R nephrolithiasis. During the hospital course, patient was pain controlled. Urology evaluated him and he underwent R ureteroscopic laser lithotripsy, R JJ stent insertion. Patient was stable. He was discharged home on 7 day course of bactrim and given percocet Q4h prn. Minutes to complete discharge: 31 Discharge Summary Reason For Visit: KIDNEY STONE ON RT SIDE HYDROURETER Current Active Problems Hydroureter on right (Acute) Kidney stone on right side (Acute) Condition: Stable - Instructions Diet, Activity, Other Instructions: You were in the hospital due to a kidney stone. You underwent a procedure to remove that stone. [facility] follow up with your primary care provider in 1 week, contact information has been provided Please follow up with a urologist in 5 days, contact information has been provided [phone] Please drink plenty of water. If you have any chest pain, shortness of breath, blood in the urine, trouble urinating, or any new symptoms please come back to the hospital immediately. Keep suture taped to penis. No sex. Referrals: Lavon Avila MD [Staff Physician] - - Home Medications Comprehensive Discharge Medication List: Ambulatory Orders Oxycodone HCl/Acetaminophen [Percocet 5-325 mg Tablet] 1 - 2 tab PO Q4H PRN #20 tablet MDD 6 03/11/17 Sulfamethoxazole/Trimethoprim [Bactrim Ds -] 1 tab PO BID #14 tablet 03/11/17 This patient is new to me today: No Emergency Visit: No Critical Care patient: No - Discharge Referral Referred to [facility] No
[2017-03-11 18:41] VITALS: BP 111/73; PULSE 66; TEMP 97.9
[2017-03-11] MEDS ORDERED: SULFAMETHOXAZOLE/TRIMETHOPRIM 800MG/160MG D.S. TABLET PO SCH (22:00)
--- NOTE | 2017-03-12 21:47 | OP ---
DATE OF OPERATION: 03/11/2017 PREOPERATIVE DIAGNOSIS: Right ureteropelvic junction calculus, right hydronephrosis, right renal calculi. POSTOPERATIVE DIAGNOSIS: Right ureteropelvic junction calculus, right hydronephrosis, right renal calculi. PROCEDURE: Right ureteroscopic laser lithotripsy, right double-J stent insertion. SURGEON: Lavon Arriaza MD DOCKMASTER: None. ANESTHESIA: General via laryngeal mask. ANESTHESIOLOGIST: Tari Azar MD SPECIMENS: None. CULTURES: None. DRAINS: 6-Ecuadorean 26-cm right double-J stent. ESTIMATED BLOOD LOSS: Negligible. COMPLICATIONS: None. PROCEDURE: The patient was brought to the operating room and placed on the operating table in the supine position. After administration of intravenous antibiotics, general anesthesia was administered via laryngeal mask. The patient was placed in the dorsal lithotomy position. The perineum and genitals were prepped and draped in the usual sterile manner. A 22-Ecuadorean cystoscope was inserted into the bladder under direct vision. The anterior and posterior urethras were normal. The bladder was entered and thoroughly inspected. There were no foreign bodies, tumors, stones, or inflammation. Both ureteral orifices were in their usual locations with clear efflux bilaterally. The right ureteral orifice was cannulated with a 0.038 guidewire and advanced to the level of the right renal pelvis under fluoroscopic and direct visual guidance. A dual-lumen catheter was inserted. A retrograde pyelogram was done and demonstrated a radiopaque 1-cm right UPJ calculus and additional right renal calculus. A second guidewire was placed and the cystoscope and dual-lumen catheter were removed. The navigator ureteral access sheath was now inserted over 1 of the guidewires to the level of the proximal ureter and the inner sheath was removed with the guidewire. Now, the flexible ureteroscope was inserted through the ureteral access sheath to the level of the ureteropelvic junction where a 1 cm calculus was visualized. Using a 360 Micron laser fiber, laser lithotripsy was done until the stone was fragmented into many pieces. Another stone in the renal collecting system was also fragmented. Attempts at basketing the small fragments were unsuccessful. Retrograde pyelogram was done and demonstrated no obstructing stones anymore and a few fragments in the lower pole and no extravasation of contrast. The entire course of the ureter was inspected upon withdrawal of the ureteroscope and no additional stones were seen. Now, the cystoscope was back-loaded and a 6-Ecuadorean 26-cm right double-J stent was inserted over the guidewire under direct visual and fluoroscopic guidance, leaving 1 coil in the renal pelvis and 1 coil in the bladder. Now, the bladder was emptied and the cystoscope was removed. The stent was secured to the penis with Tegaderm. He tolerated the procedure well and was transferred to the recovery room in stable condition. PLAN: Follow up in the office. We will obtain KUB. He may need additional ESWL. We will remove the stent in the office. LAVON ARRIAZA M.D. [id number]
== END 2017-03-11 21:19 | disposition home or self-care (01) | DRG 465 ==
LOC: JER 21:41 → JERBED 03-10 02:57 → J5S 03-10 20:50
PROVIDERS: ADMIT Internal Medicine; ATTEND Internal Medicine
PROC: 0TF68ZZ Fragmentation in Right Ureter, Via Natural or Artificial Opening Endoscopic (ICD-10-PCS; principal; 2017-03-11 12:00)
PROC: 0T768DZ Dilation of Right Ureter with Intraluminal Device, Via Natural or Artificial Opening Endoscopic (ICD-10-PCS; 2017-03-11 12:00)
PROC: BT1DYZZ Fluoroscopy of Right Kidney, Ureter and Bladder using Other Contrast (ICD-10-PCS; 2017-03-11 12:00)
DX: N13.2 Hydronephrosis with renal and ureteral calculous obstruction (principal); R11.0 Nausea; R10.31 Right lower quadrant pain
CPT/HCPCS: 36415; 74176-TC; 76000-TC; 80048; 80053; 81003; 81015; 85025; 85027; 85610; 85730; 86850; 86900; 86901; 93005; 93010; 94760; 99285-25

== ENCOUNTER 2017-03-19 00:30 | Emergency (ER) | payer BC ==
[2017-03-19 01:08] VITALS: BMI 28.2
[2017-03-19 01:40] LABS: PH,URINE 6.5 (5.0-8.0); URINE APPEARANCE CLEAR; URINE BILIRUBIN NEGATIVE (NEGATIVE); URINE BLOOD 3+ (NEGATIVE); URINE COLOR RED; URINE GLUCOSE (UA) NEGATIVE (NEGATIVE); URINE KETONE NEGATIVE (NEGATIVE); URINE LEUK ESTERASE NEGATIVE (NEGATIVE); URINE UROBILINOGEN 0.2 mg/dL (0.2-1.0)
[2017-03-19] MEDS ORDERED: SODIUM CHLORIDE 1,000 ML IV STA (01:44)
--- NOTE | 2017-03-19 01:44 | PDOC ---
History of Present Illness - History of Present Illness Initial Comments: 03/19/17 01:45 Patient is a 37 year old male with significant medical hx of kidney stones who is presenting to the ED with hematuria for one day. Patient reports undergoing lithotripsy with a ureteral stent placed one week ago by Dr. Avila and has been on Bactrim since his procedure. Several days ago the patient had his stent removed. The patient reports hes been urinating fine since then until this afternoon when he began having blood in his urine. The patient also complains of right flank burning sensation that travels to his groin. Denies any dysuria, fevers, chills, or abdominal pain. <Ivet Ray - Last Filed: 03/19/17 01:45> <Erasmo Quiroga - Last Filed: 03/19/17 02:21> - General Chief Complaint: Hematuria Stated Complaint: BLOOD IN URINE Time Seen by Provider: 03/19/17 00:48 Past History <vIet Ray - Last Filed: 03/19/17 01:45> - Past Medical History Kidney Stones: Yes - Psycho/Social/Smoking Cessation Hx Suicidal Ideation: No Smoking History: Current every day smoker Information on smoking cessation initiated: No Hx Alcohol Use: No Drug/Substance Use Hx: No <Erasmo Quiroga - Last Filed: 03/19/17 02:21> - Past Medical History Allergies/Adverse Reactions: Allergies Allergy/AdvReac Type Severity Reaction Status Date / Time No Known Allergies Allergy Verified 03/19/17 01:05 Home Medications: Ambulatory Orders Oxycodone HCl/Acetaminophen [Percocet 5-325 mg Tablet] 1 - 2 tab PO Q4H #20 tablet MDD 6 03/11/17 Sulfamethoxazole/Trimethoprim [Bactrim Ds -] 1 tab PO BID #14 tablet 03/11/17 Review of Systems - Review of Systems Comments:: 03/19/17 01:45 CONSTITUTIONAL: No fever, no chills, no fatigue EYES: No visual changes ENT: No ear pain, no sore throat CARDIOVASCULAR: No chest pain, no palpitations RESPIRATORY: No cough, no SOB GI: No abdominal pain, no nausea, no vomiting, no constipation, no diarrhea GENITOURINARY: Hematuria. No dysuria, no frequency MUSKULOSKELETAL: Right flank burning sensation. No joint pain, no myalgias SKIN: No rash NEURO: No headache <Ivet Ray - Last Filed: 03/19/17 01:45> *Physical Exam - Vital Signs Last Vital Signs Temp Pulse Resp BP Pulse Ox 98.7 F 69 14 134/98 98 03/19/17 01:05 03/19/17 01:05 03/19/17 01:05 03/19/17 01:05 03/19/17 01:05 - Physical Exam Comments: 03/19/17 01:46 CONSTITUTIONAL: Well-appearing; well-nourished; in no apparent distress HEAD: Normocephalic; atraumatic EYES: PERRL; EOM intact ENMT: External appears normal; normal oropharynx NECK: Supple; non-tender; no cervical lymphadenopathy CARD: Normal S1, S2; no murmurs, rubs, or gallops RESP: Normal chest excursion with respiration; breath sounds clear and equal bilaterally; no wheezes, rhonchi, or rales ABD: Soft, non-distended; non-tender; no palpable organomegaly, no palpable hernias EXT: Normal ROM in all four extremities; non-tender to palpation; distal pulses intact SKIN: Warm, dry, no rash NEURO: No focal neurological deficiencies <Ivet Ray - Last Filed: 03/19/17 01:45> - Vital Signs Last Vital Signs Temp Pulse Resp BP Pulse Ox 98.7 F 69 14 134/98 98 03/19/17 01:05 03/19/17 01:05 03/19/17 01:05 03/19/17 01:05 03/19/17 01:05 <Erasmo Quiroga - Last Filed: 03/19/17 02:21> ED Treatment Course - LABORATORY CBC & Chemistry Diagram: 03/19/17 01:45 03/19/17 01:45 <Erasmo Quiroga - Last Filed: 03/19/17 02:21> Medical Decision Making - Medical Decision Making 03/19/17 02:19 Patient is well-appearing 37-year-old male who presents to the ER with painless hematuria after undergoing lithotripsy followed by ureteral stent removal by Dr. Ramírez of urology. In the ER, patient is awake and alert, afebrile, nontoxic appearing. There is no CVA tenderness bilaterally. Urinalysis reveals no wbc's, greater than 100 RBCs and is noted to be nitrite positive. CBC is within normal limit without evidence of neutrophilia. We'll administer grams ceftriaxone. An will discharge patient with outpatient follow-up with urology as needed. <Erasmo Quiroga - Last Filed: 03/19/17 02:21> *DC/Admit/Observation/Transfer - Attestations Scribe Attestion: 03/19/17 01:47 Documentation prepared by Ivet Ray, acting as medical technologist microbiology for Erasmo Quiroga MD. <Ivet Ray - Last Filed: 03/19/17 01:45> - Attestations Physician Attestion: 03/19/17 02:19 The documentation was prepared by the scribe under my direct supervision. I have reviewed the documentation which correctly represents the findings, medical decision-making and critical action taken by me. <Erasmo Quiroga - Last Filed: 03/19/17 02:21> Diagnosis at time of Disposition: Hematuria Qualifiers: Hematuria type: gross Qualified Code(s): R31.0 - Gross hematuria - Discharge Dispostion Disposition: HOME Condition at time of disposition: Stable - Referrals Referrals: Reginaldo Leahy [Primary Care Provider] - Lavon Avila MD [Staff Physician] - - Patient Instructions Printed Discharge Instructions: DI for Hematuria
[2017-03-19 01:49] LABS: URINE NITRITE POSITIVE (NEGATIVE); URINE PROTEIN 2+ (NEGATIVE)
[2017-03-19 01:53] LABS: BASOPHIL 0.9 % (0-2.0); EOSINOPHIL 2.3 % (0-4.5); MCH 27.4 pg (25.7-33.7); MCHC 33.5 g/dl (32.0-35.9); MEAN CELL VOLUME 81.9 fl (80-96); MEAN PLT VOLUME 7.8 fl (7.5-11.1); NEUTROPHILS 51.1 % (42.8-82.8); PLATELET COUNT 242 K/MM3 (134-434); RDW 13.2 % (11.9-15.9); WHITE BLOOD COUNT 8.2 K/mm3 (4.0-10.0)
[2017-03-19 02:07] LABS: URINE BACTERIA FEW /hpf (NONE SEEN); URINE RBC >100 /hpf (0-3); URINE WBC NONE SEEN /hpf (3-5)
[2017-03-19] MEDS ORDERED: CEFTRIAXONE 1 GM in DEXTROSE 5%-WATER - 50 ML IVPB ONE (02:18)
[2017-03-19 02:26] LABS: ALK PHOS 74 U/L (45-117); ANION GAP 10 (8-16); BILIRUBIN,TOTAL 0.2 mg/dL (0.2-1.0); CALCIUM 9.1 mg/dL (8.5-10.1); CO2 26 mmol/L (21-32); CREATININE 0.9 mg/dL (0.7-1.3); GLUCOSE,RANDOM 94 mg/dL (74-106); SGOT/AST 17 U/L (15-37); SGPT/ALT 31 U/L (12-78); TOT PROT 7.2 g/dl (6.4-8.2)
[2017-03-19] MEDS ORDERED: CEFTRIAXONE 50 ML ONE (02:35)
[2017-03-19 03:03] VITALS: BP 125/89; PULSE 72; TEMP 98.1
== END 2017-03-19 03:04 | disposition home or self-care (01) ==
LOC: JER 00:30
PROC: 3E0337Z Introduction of Electrolytic and Water Balance Substance into Peripheral Vein, Percutaneous Approach (ICD-10-PCS; principal; 2017-03-19)
PROC: 3E03329 Introduction of Other Anti-infective into Peripheral Vein, Percutaneous Approach (ICD-10-PCS; 2017-03-19)
DX: R31.0 Gross hematuria (principal); Z87.442 Personal history of urinary calculi
CPT/HCPCS: 36415; 80053; 81003; 81015; 85025; 87086; 99282-25